=== PATIENT | male | born 1965 | race Caucasian/White ===

== ENCOUNTER 2020-03-03 17:24 | Emergency (ER) | payer OTHER ==
[2020-03-03] MEDS ORDERED: Sodium Chloride 0.9% 10 ML Syringe FLUSH PRN (18:03)
--- NOTE | 2020-03-03 19:08 | EDM.PDOC ---
ED HPI GENERAL MEDICAL PROBLEM - General Chief Complaint: Respiratory Problem Stated Complaint: ABDOMINAL PAIN SENT BY [facility] Time Seen by Provider: 03/03/20 17:43 Source of Information: Reports: Patient, Provider History Limitations: Reports: No Limitations - History of Present Illness INITIAL COMMENTS - FREE TEXT/NARRATIVE: The patient presents from the walk in clinic for abdominal pain, diarrhea, cough, fever, body aches and fatigue. This has been going on for about a week. He was at a green party last weekend and drank some jungle juice that a friend made and he thinks it was bad. He went to the walk in clinic at [place]. They felt it was GI related and the had him see Esperanza Padilla the surgery PA. She did a CBC that looked good and CMP. His CRP was elevated at 156. He had a temp of 100.5 there. His oxygen saturations were low. She ordered a CXR and it showed patchy infiltrates suspect COVID 19 viral infection. He was sent up here for further management. He says he has been feeling worse over the past couple of days. He has no chest pain but he is short of breath. He only started coughing in the past couple of days. He does not smoke. He has no history of ashtma or COPD. He has no other medical problems. Onset: Gradual Duration: Week(s): Location: Reports: Abdomen Quality: Reports: Other (cramping) Severity: Moderate Improves with: Reports: None Worsens with: Reports: None Associated Symptoms: Reports: Cough, Fever/Chills, Shortness of Breath. Denies: Chest Pain, Headaches, Nausea/Vomiting - Related Data Allergies Allergy/AdvReac Type Severity Reaction Status Date / Time No Known Allergies Allergy Verified 03/03/20 17:36 Home Meds: Home Meds . [No Known Home Meds] 03/03/20 [History] Past Medical History - Past Health History Medical/Surgical History: Denies Medical/Surgical History Social & Family History - Tobacco Use Smoking Status *Q: Never Smoker Second Hand Smoke Exposure: No - Caffeine Use Caffeine Use: Reports: Coffee - Recreational Drug Use Recreational Drug Use: No ED ROS GENERAL - Review of Systems Review Of Systems: See Below Constitutional: Reports: Fever, Chills, Malaise, Weakness, Fatigue HEENT: Reports: No Symptoms Respiratory: Reports: Shortness of Breath, Cough Cardiovascular: Reports: No Symptoms Endocrine: Reports: Fatigue GI/Abdominal: Reports: Abdominal Pain, Diarrhea. Denies: Nausea, Vomiting : Reports: No Symptoms Musculoskeletal: Reports: No Symptoms Skin: Reports: No Symptoms ED EXAM, GENERAL - Physical Exam Exam: See Below Exam Limited By: No Limitations General Appearance: Alert, No Apparent Distress Ears: Normal External Exam Nose: Normal Inspection Head: Atraumatic, Normocephalic Neck: Normal Inspection Respiratory/Chest: No Respiratory Distress, Decreased Breath Sounds, Rhonchi Cardiovascular: Regular Rate, Rhythm, No Edema, No Murmur GI/Abdominal: Soft, Non-Tender, No Organomegaly, No Mass Back Exam: Normal Inspection Extremities: Normal Inspection Course - Vital Signs Last Recorded V/S: Last Vital Signs Temp 99.8 F 03/03/20 17:43 Pulse 97 03/03/20 17:43 Resp 16 03/03/20 17:43 BP 150/101 H 03/03/20 17:43 Pulse Ox 91 L 03/03/20 17:43 - Orders/Labs/Meds Orders: Active Orders 24 hr Category Date Time Status Oxygen Therapy Adult [Oxygen Therapy, ED] [RC] Care 03/03/20 18:05 Active ASDIRECTED Peripheral IV Care [RC] . DIRECTED Care 03/03/20 18:03 Active Sodium Chloride 0.9% [Saline Flush] Med 03/03/20 18:03 Active 10 ml FLUSH ASDIRECTED PRN Peripheral IV Insertion Adult [OM.PC] Routine Oth 03/03/20 18:03 Ordered Medication Orders Sodium Chloride (Saline Flush) 10 ml FLUSH ASDIRECTED PRN PRN Reason: Keep Vein Open Last Admin: 03/03/20 18:39 Dose: 10 ml Documented by: YOLIE Labs: Laboratory Tests 03/03/20 03/03/20 03/03/20 Range/Units 18:26 18:26 18:26 D-Dimer, Quantitative (0.19-0.50) mg/L Lactic Acid 1.0 (0.4-2.0) mmol/L Ferritin 2429 H (26-388) ng/ml Lactate Dehydrogenase 371 H (85-227) U/L SARS Virus RNA (PCR) (NEGATIVE) 03/03/20 03/03/20 Range/Units 18:26 18:28 D-Dimer, Quantitative 0.76 H (0.19-0.50) mg/L Lactic Acid (0.4-2.0) mmol/L Ferritin (26-388) ng/ml Lactate Dehydrogenase (85-227) U/L SARS Virus RNA (PCR) Positive H (NEGATIVE) Meds: Medications Generic Name Dose Route Start Last Admin Trade Name Freq PRN Reason Stop Dose Admin Sodium Chloride 10 ml 03/03/20 18:03 03/03/20 18:39 Saline Flush FLUSH 10 ml ASDIRECTED PRN Administration Keep Vein Open - Re-Assessments/Exams Free Text/Narrative Re-Assessment/Exam: 03/03/20 19:10 I ordered oxygen, IV saline lock, more labs and a COVID 19. 03/03/20 19:41 His D-dimer is elevated at 0.76. His lactic acid is 1. His ferritin is elevated at 2429. His lactate dehydrogenase is elevated at 371. I am waiting on the COVID test but clinically and with his CXR he has COVID. The other labs support it. 03/03/20 20:04 His COVID 19 is positive. 03/03/20 20:05 I feel he needs to be admitted. We do not have the antiviral or plasma. He will need to go to [facility]. I called [facility] in [facility] and talked with Dr Chow and she accepted the patient. Departure - Departure Time of Disposition: 20:15 Disposition: DC/Tfer to Acute Hospital 02 Condition: Poor Clinical Impression: COVID-19, Hypoxia Diarrhea Qualifiers: Diarrhea type: unspecified type Qualified Code(s): R19.7 - Diarrhea, unspecified - Discharge Information Referrals: Vivienne Arriola MD [Primary Care Provider] - Forms: ED Department Discharge Sepsis Event Note (ED) - Evaluation Sepsis Screening Result: No Definite Risk - Focused Exam Vital Signs: Vital Signs Temp Pulse Resp BP Pulse Ox 03/03/20 17:43 99.8 F 97 16 150/101 H 91 L - My Orders Last 24 Hours: My Active Orders 03/03/20 18:03 Peripheral IV Care [RC] . DIRECTED Sodium Chloride 0.9% [Saline Flush] 10 ml FLUSH ASDIRECTED PRN Peripheral IV Insertion Adult [OM.PC] Routine 03/03/20 18:05 Oxygen Therapy Adult [Oxygen Therapy, ED] [RC] ASDIRECTED - Assessment/Plan Last 24 Hours: My Active Orders 03/03/20 18:03 Peripheral IV Care [RC] . DIRECTED Sodium Chloride 0.9% [Saline Flush] 10 ml FLUSH ASDIRECTED PRN Peripheral IV Insertion Adult [OM.PC] Routine 03/03/20 18:05 Oxygen Therapy Adult [Oxygen Therapy, ED] [RC] ASDIRECTED
== END 2020-03-03 21:00 ==
LOC: JD.ED 17:24
DX: U07.1 COVID-19 (principal); R09.02 Hypoxemia; R19.7 Diarrhea, unspecified
CPT/HCPCS: 36415; 82728; 83605; 83615; 85379; 99284; 99285; U0002